=== PATIENT | female | born 1965 | race Caucasian/White ===

== ENCOUNTER → 2016-08-08 | Outpatient (CLI) | payer MEDICARE ==
[~2016-08-08] MED LIST: ACET-1600 PO; DIAZ2TAB PO; DIPH25CA61 PO; DOXY25TA18 PO; FLUC50TA PO; LEVO100T PO; LIPA1CAP4 PO; MEDROL DOSEPAK PO; MELO15TA6 PO; METH4TAB2 PO; METH750T87 PO; MULTIVITAMIN PO; NAPR500T3 PO; ONDA4TAB7 PO; OXYC-229 PO; OXYC10TA6 PO; POTA40LI3 PO; RIZA10TA20 PO; SUVO5TAB PO; TRAZ50TA18 PO; VITAMIN E PO; [UNRECOGNIZED DRUG - OTHER]
== END | disposition home or self-care (01) ==
LOC: CFH 14:16
PROVIDERS: ATTEND Neurological Surgery
DX: M50.00 Cervical disc disorder with myelopathy, unspecified cervical region (principal); M43.22 Fusion of spine, cervical region
CPT/HCPCS: 72050

== ENCOUNTER → 2016-09-06 | Outpatient (CLI) | payer MEDICARE | END | disposition home or self-care (01) | LOC: CFH 14:20 | PROVIDERS: ATTEND Neurological Surgery | DX: M50.021 Cervical disc disorder at C4-C5 level with myelopathy (principal); M50.022 Cervical disc disorder at C5-C6 level with myelopathy; M50.023 Cervical disc disorder at C6-C7 level with myelopathy; M47.892 Other spondylosis, cervical region; M48.02 Spinal stenosis, cervical region; M25.78 Osteophyte, vertebrae; Z98.890 Other specified postprocedural states; Z98.1 Arthrodesis status | CPT/HCPCS: 72125 ==

== ENCOUNTER → 2018-01-17 | Outpatient (CLI) | payer MEDICARE ==
[~2018-01-17] MED LIST changes: +NAPR-685 PO; -NAPR500T3 PO; -OXYC-229 PO; +OXYC-307 PO; -POTA40LI3 PO; +POTA40LI7 PO; +TRAZ-136 PO; -TRAZ50TA18 PO
== END | disposition home or self-care (01) ==
LOC: CFH 13:18
PROVIDERS: ATTEND Neurological Surgery
DX: S13.180A Subluxation of C7/T1 cervical vertebrae, initial encounter (principal); X58.XXXA Exposure to other specified factors, initial encounter; Y93.89 Activity, other specified; Y92.89 Other specified places as the place of occurrence of the external cause; Y99.8 Other external cause status; M50.33 Other cervical disc degeneration, cervicothoracic region; Z88.5 Allergy status to narcotic agent
CPT/HCPCS: 72125

== ENCOUNTER → 2018-02-06 | Outpatient (CLI) | payer MEDICARE ==
[~2018-02-06] MED LIST changes: +GADOBUTROL 7.5 MMOL/7.5 ML PFS ONE
== END | disposition home or self-care (01) ==
LOC: CFH 10:08
PROVIDERS: ATTEND Neurological Surgery
DX: R90.82 White matter disease, unspecified (principal); G91.9 Hydrocephalus, unspecified
CPT/HCPCS: 70553; A9585

== ENCOUNTER → 2018-07-16 | Outpatient (CLI) | payer MEDICARE ==
[~2018-07-16] MED LIST changes: -GADOBUTROL 7.5 MMOL/7.5 ML PFS ONE; -TRAZ-136 PO; +TRAZ50TA66 PO
== END | disposition home or self-care (01) ==
LOC: CFH 14:10
PROVIDERS: ATTEND Neurological Surgery
DX: M81.0 Age-related osteoporosis without current pathological fracture (principal); M50.00 Cervical disc disorder with myelopathy, unspecified cervical region; M54.5 Low back pain
CPT/HCPCS: 72050; 77080

== ENCOUNTER 2018-09-02 15:56 | Emergency (ER) | payer MEDICARE ==
[~2018-09-02] VITALS: Ht 167.6 cm; Wt 61.6 kg
[2018-09-02 16:14] VITALS: BP 118/63
--- NOTE | 2018-09-02 18:43 | NUR ---
Patient/Caregiver given discharge instructions and they have confirmed that they understand the instructions. Patient ambulatory with steady gait.
== END 2018-09-02 18:44 | disposition home or self-care (01) ==
LOC: ED 18:20
DX: S83.91XA Sprain of unspecified site of right knee, initial encounter (principal); S66.512A Strain of intrinsic muscle, fascia and tendon of right middle finger at wrist and hand level, initial encounter; Q76.49 Other congenital malformations of spine, not associated with scoliosis; Z90.49 Acquired absence of other specified parts of digestive tract; W10.9XXA Fall (on) (from) unspecified stairs and steps, initial encounter; Y93.89 Activity, other specified; Y92.009 Unspecified place in unspecified non-institutional (private) residence as the place of occurrence of the external cause; Y99.8 Other external cause status
CPT/HCPCS: 72125; 99284

== ENCOUNTER → 2019-06-10 | Outpatient (CLI) | payer MEDICARE | END | disposition home or self-care (01) | LOC: CFH 15:16 | PROVIDERS: ATTEND Neurological Surgery | DX: M50.00 Cervical disc disorder with myelopathy, unspecified cervical region (principal) | CPT/HCPCS: 72050 ==

== ENCOUNTER → 2020-02-03 | Outpatient (CLI) | payer MEDICARE | END | disposition home or self-care (01) | LOC: CFH 13:12 | PROVIDERS: ATTEND Physician Assistant | DX: M51.26 Other intervertebral disc displacement, lumbar region (principal); M48.061 Spinal stenosis, lumbar region without neurogenic claudication; M50.00 Cervical disc disorder with myelopathy, unspecified cervical region; M51.36 Other intervertebral disc degeneration, lumbar region; M25.78 Osteophyte, vertebrae; R51 Headache | CPT/HCPCS: 70551; 72040; 72100; 72141; 72148; 72190 ==

== ENCOUNTER → 2020-09-06 | Outpatient (CLI) | payer MEDICARE ==
[~2020-09-06] MED LIST changes: -OXYC-307 PO; +OXYC-380 PO
== END | disposition home or self-care (01) ==
LOC: CFH 15:10
PROVIDERS: ATTEND Family Medicine
DX: N20.0 Calculus of kidney (principal); Z90.49 Acquired absence of other specified parts of digestive tract
CPT/HCPCS: 74176